=== PATIENT | female | born 1945 | race Caucasian/White ===

== ENCOUNTER → 2016-08-03 | Outpatient (CLI) | payer MEDICARE, OTHER ==
[~2016-08-03] MED LIST: ZYRTEC10 MG PO
[2016-08-03 17:16] LABS: HEMOGLOBIN 15.5 gm/dl (12.3-15.3); RED BLOOD COUNT 5.18 M/UL (4.00-5.10); WHITE BLOOD COUNT 10.9 K/UL (4.5-11.0)
[2016-08-03 17:41] LABS: BUN/CREATININE RATIO 12 (0-10)
== END ==
LOC: LAB 15:17
PROVIDERS: Emergency Medicine
DX: I25.10 Atherosclerotic heart disease of native coronary artery without angina pectoris (principal); J41.0 Simple chronic bronchitis; K21.9 Gastro-esophageal reflux disease without esophagitis; R53.83 Other fatigue; F17.210 Nicotine dependence, cigarettes, uncomplicated; I10 Essential (primary) hypertension; E55.9 Vitamin D deficiency, unspecified; E53.8 Deficiency of other specified B group vitamins
CPT/HCPCS: 36415; 80053; 80061; 82550; 82607; 83704; 84439; 84443; 84484; 85027; 93005